=== PATIENT | female | born 2000 | race Caucasian/White ===

== ENCOUNTER 2019-02-22 11:01 | Emergency (ER) | payer BC ==
--- NOTE | 2019-02-22 11:47 | RAD REPORT ---
EXAM DESCRIPTION: Rosibel Single View02/22/2019 11:41 am CLINICAL HISTORY: Chest pain COMPARISON: none FINDINGS: The lungs appear clear of acute infiltrate. The heart is normal size IMPRESSION: No acute abnormalities displayed
[2019-02-22 11:57] LABS: Absolute Lymphocytes (CBC) 2.3 K/uL (0.7-4.9); Basophils % 0.5 % (0-1.3); Hematocrit 37.8 % (36.0-45.0); Lymphocytes % 27.4 % (15.3-44.8); MPV 8.4 fL (7.6-11.3); RBC Red Blood Cell Count 4.72 M/uL (3.86-4.86)
[2019-02-22 12:02] LABS: Protime INR 1.05
[2019-02-22 12:10] LABS: ALT/SGPT 22 U/L (12-78); AST/SGOT 19 U/L (15-37); Albumin 2.9 g/dL (3.4-5.0); Alkaline Phosphatase 72 U/L (45-117); BUN Blood Urea Nitrogen 11 mg/dL (7-18); Bicarbonate 23 mmol/L (21-32); Bilirubin Direct 0.1 mg/dL (0-0.2); Bilirubin Total 0.5 mg/dL (0.2-1.0); Glucose Level 98 mg/dL (74-106); Magnesium 2.1 mg/dL (1.8-2.4); NT PRO-BNP 111 pg/mL (<125); Protein, Total 6.7 g/dL (6.4-8.2); Sodium Level 139 mmol/L (136-145); Troponin (Emerg Dept Use Only) < 0.02 ng/mL (0.0-0.045)
[2019-02-22 12:32] LABS: Urine Blood 2+ (NEG); Urine Glucose NEGATIVE (NEG); Urine Protein NEGATIVE (NEG)
--- NOTE | 2019-02-22 13:23 | EDPHYS ---
Physician Documentation [facility] Name: Brittany Rivera Age: 18 yrs Sex: Female : 2000 Arrival Date: 02/22/2019 Time: 11:03 Bed 20 Private MD: ED Physician Loco Olivas HPI: 02/22 11:14 This 18 yrs old Female presents to ER via EMS with complaints of Chest jmm Tightness. 11:14 The patient presents with a history of heart racing. Onset: The symptoms/episode jmm began/occurred acutely, just prior to arrival. Duration: The patient or guardian reports a single episode, that is now resolved. Modifying factors: The symptoms are aggravated by nothing. The symptoms are alleviated by nothing. Associated signs and symptoms: Pertinent positives: Pertinent negatives: vomiting. This is a 18 year old female with no chronic medical conditions that presents to the ED with complaints of chest tightness and palpitations beginning while at work earlier today. Patient states she has been taking weight loss supplements over the past week. States symptoms have improved since onset. . Historical: - Allergies: 11:05 No Known Allergies; jl7 - Home Meds: 11:05 None [Active]; jl7 - PMHx: 11:05 None; jl7 - PSHx: 11:05 None; jl7 - Immunization history:: Adult Immunizations up to date. - Social history:: Smoking status: Patient/guardian denies using tobacco. - Ebola Screening: : No symptoms or risks identified at this time. ROS: 11:14 Constitutional: Negative for fever, chills, and weight loss. jmm 11:14 Cardiovascular: Positive for palpitations. 11:14 Respiratory: Positive for shortness of breath. 11:14 Neuro: Positive for 11:14 All other systems are negative. Exam: 11:14 Constitutional: This is a well developed, well nourished patient who is awake, alert, jmm and in no acute distress. Head/Face: atraumatic. Eyes: EOMI, no conjunctival erythema appreciated ENT: Moist Mucus Membranes Neck: Trachea midline, Supple Chest/axilla: Normal chest wall appearance and motion. Cardiovascular: Regular rate and rhythm. No edema appreciated Respiratory: Normal respirations, no respiratory distress appreciated Abdomen/GI: Non distended, soft Back: Normal ROM Skin: General appearance color normal MS/ Extremity: Moves all extremities, no obvious deformities appreciated, no edema noted to the lower extremities Neuro: Awake and alert, normal gait Psych: Behavior is normal, Mood is normal, Patient is cooperative and pleasant Vital Signs: 11:05 BP 121 / 67; Pulse 98; Resp 16 S; Temp 98.2; Pulse Ox 100% on R/A; Weight 86.18 kg (R); em Height 5 ft. 4 in. (162.56 cm) (R); Pain 0/10; 12:27 BP 106 / 67; Pulse 84; Resp 16; Pulse Ox 98% on R/A; em 13:39 BP 104 / 80; Pulse 84; Resp 18; Pulse Ox 99% on R/A; Pain 0/10; em 11:05 Body Mass Index 32.61 (86.18 kg, 162.56 cm) em MDM: 11:14 Patient medically screened. awais 13:21 Data reviewed: vital signs, nurses notes. Counseling: I had a detailed discussion with joycelyn the patient and/or guardian regarding: the historical points, exam findings, and any diagnostic results supporting the discharge/admit diagnosis, lab results, radiology results, the need for outpatient follow up, to return to the emergency department if symptoms worsen or persist or if there are any questions or concerns that arise at home. ED course: I do not suspect ACS or PE. Patient is advised to follow up with pcp for reevaluation. Otherwise given strict return precautions. Patient understood and agrees with the plan of care. . 02/22 11:18 Order name: Basic Metabolic Panel; Complete Time: 12:17 [facility] 02/22 11:18 Order name: CBC with Diff; Complete Time: 12:17 [facility] 02/22 11:18 Order name: LFT's; Complete Time: 12:17 [facility] 02/22 11:18 Order name: Magnesium; Complete Time: 12:17 [facility] 02/22 11:18 Order name: NT PRO-BNP; Complete Time: 12:17 [facility] 02/22 11:18 Order name: PT-INR; Complete Time: 12:41 [facility] 02/22 11:18 Order name: Troponin (emerg Dept Use Only); Complete Time: 12:17 [facility] 02/22 11:18 Order name: XRAY Chest (1 view); Complete Time: 11:49 [facility] 02/22 11:18 Order name: EKG; Complete Time: 11:20 [facility] 02/22 11:18 Order name: Cardiac monitoring; Complete Time: 11:48 [facility] 02/22 11:18 Order name: EKG - Nurse/Tech; Complete Time: 11:48 [facility] 02/22 11:18 Order name: D-Dimer; Complete Time: 12:41 [facility] 02/22 11:57 Order name: Urine Dipstick--Ancillary (enter results); Complete Time: 12:41 [facility] 02/22 11:57 Order name: Urine --Ancillary (enter results); Complete Time: 12:41 [facility] 02/22 11:18 Order name: IV Saline Lock; Complete Time: 11:48 [facility] 02/22 11:18 Order name: Labs collected and sent; Complete Time: 11:48 [facility] 02/22 11:18 Order name: O2 Per Protocol; Complete Time: 11:48 [facility] 02/22 11:18 Order name: O2 Sat Monitoring; Complete Time: 11:48 [facility] Administered Medications: No medications were administered Disposition: 15:34 Co-signature as Attending Physician, Loco Olivas MD I agree with the assessment and [facility] plan of care. Disposition: 02/22/19 13:22 Discharged to Home. Impression: Palpitations. - Condition is Stable. - Discharge Instructions: Palpitations. - Medication Reconciliation Form, Thank You Letter, Antibiotic Education, Prescription Opioid Use form. - Follow up: Private Physician; When: 2 - 3 days; Reason: Recheck today's complaints, Continuance of care, Re-evaluation by your physician. Signatures: Dispatcher [employer] Loco Peñaloza MD MD cha Mickail, Joel PA PA [facility] Tim Martino, REFERENCE ASSISTANT REFERENCE ASSISTANT Oanh Shrestha, RN RN jl7 Corrections: (The following items were deleted from the chart) 13:50 13:22 02/22/2019 13:22 Discharged to Home. Impression: Palpitations. Condition is em Stable. Forms are Medication Reconciliation Form, Thank You Letter, Antibiotic Education, Prescription Opioid Use. Follow up: Private Physician; When: 2 - 3 days; Reason: Recheck today's complaints, Continuance of care, Re-evaluation by your physician. [facility]
--- NOTE | 2019-02-22 13:23 | ER ---
Nurse's Notes [facility] Name: Brittany Rivera Age: 18 yrs Sex: Female : 2000 Arrival Date: 02/22/2019 Time: 11:03 Bed 20 Private MD: Diagnosis: Palpitations Presentation: 02/22 11:04 Presenting complaint: EMS states: Pt c/o chest tightness on inspiration. Transition of jl7 care: patient was not received from another setting of care. Onset of symptoms was February 22, 2019. Risk Assessment: Do you want to hurt yourself or someone else? Patient reports no desire to harm self or others. Initial Sepsis Screen: Does the patient meet any 2 criteria? No. Patient's initial sepsis screen is negative. Does the patient have a suspected source of infection? No. Patient's initial sepsis screen is negative. Care prior to arrival: None. 11:04 Method Of Arrival: EMS: [place] [id number] 11:04 Acuity: MIKHAIL 3 jl7 Triage Assessment: 11:05 General: Appears in no apparent distress. uncomfortable, Behavior is calm, cooperative, jl7 appropriate for age. Pain: Denies pain. Cardiovascular: Patient's skin is warm and dry. Historical: - Allergies: 11:05 No Known Allergies; jl7 - Home Meds: 11:05 None [Active]; jl7 - PMHx: 11:05 None; jl7 - PSHx: 11:05 None; jl7 - Immunization history:: Adult Immunizations up to date. - Social history:: Smoking status: Patient/guardian denies using tobacco. - Ebola Screening: : No symptoms or risks identified at this time. Screenin:15 Abuse screen: Denies threats or abuse. Nutritional screening: No deficits noted. em Tuberculosis screening: No symptoms or risk factors identified. Fall Risk None identified. Assessment: 11:15 General: Appears in no apparent distress. comfortable, Behavior is calm, cooperative, em Denies fever. Pain: Denies pain. Pain does not radiate. Pain currently is 0 out of 10 on a pain scale. Pain began suddenly. Neuro: Level of Consciousness is awake, alert, obeys commands, Oriented to person, place, time, situation, Reports had an episode of dizziness that lasted about 5 minutes, symptoms resolved. Cardiovascular: Denies chest pain, Capillary refill < 3 seconds Patient's skin is warm and dry. Rhythm is sinus rhythm. Respiratory: Reports shortness of breath during dizziness episode Airway is patent Respiratory effort is even, unlabored, Respiratory pattern is regular, symmetrical. GI: Patient currently denies nausea, vomiting. Derm: Skin is intact, is healthy with good turgor, Skin is pink, warm \T\ dry. Musculoskeletal: Capillary refill < 3 seconds, Range of motion: intact in all extremities. 12:27 Reassessment: Patient appears in no apparent distress at this time. Patient and/or em family updated on plan of care and expected duration. Pain level reassessed. Patient is alert, oriented x 3, equal unlabored respirations, skin warm/dry/pink. Patient denies pain at this time. 13:38 Reassessment: Patient appears in no apparent distress at this time. Patient and/or em family updated on plan of care and expected duration. Pain level reassessed. Patient is alert, oriented x 3, equal unlabored respirations, skin warm/dry/pink. Patient denies pain at this time. Vital Signs: 11:05 BP 121 / 67; Pulse 98; Resp 16 S; Temp 98.2; Pulse Ox 100% on R/A; Weight 86.18 kg (R); em Height 5 ft. 4 in. (162.56 cm) (R); Pain 0/10; 12:27 BP 106 / 67; Pulse 84; Resp 16; Pulse Ox 98% on R/A; em 13:39 BP 104 / 80; Pulse 84; Resp 18; Pulse Ox 99% on R/A; Pain 0/10; em 11:05 Body Mass Index 32.61 (86.18 kg, 162.56 cm) em ED Course: 11:03 Patient arrived in ED. jl7 11:05 Triage completed. jl7 11:05 Arm band placed on right wrist. jl7 11:10 Zen Elkins PA is PHCP. jmm 11:10 Loco Olivas MD is Attending Physician. jmm 11:15 Patient has correct armband on for positive identification. Placed in gown. Bed in low em position. Call light in reach. Pulse ox on. NIBP on. 11:15 EKG done, by endo tech. reviewed by Loco Olivas MD. tc 11:15 Patient maintains SpO2 saturation greater than 95% on room air. em 11:19 Tim Martino LVN is Primary Nurse. em 11:40 Initial lab(s) drawn, by me, sent to lab. Inserted saline lock: 20 gauge in right em antecubital area, using aseptic technique. Blood collected. 11:42 XRAY Chest (1 view) In Process Unspecified. EDMS 13:37 No provider procedures requiring assistance completed. IV discontinued, intact, em bleeding controlled, No redness/swelling at site. Pressure dressing applied. Administered Medications: No medications were administered Outcome: 13:22 Discharge ordered by MD. m 13:37 Discharged to home ambulatory. em 13:37 Condition: good 13:37 Discharge instructions given to patient, Instructed on discharge instructions, follow up and referral plans. Demonstrated understanding of instructions, follow-up care. 13:50 Patient left the ED. em Signatures: Dispatcher [employer] EDMS Zen Elkins PA PA [facility] Tim Martino LVN LVN em Desi Gu, parking inspector EKG Ttc Oanh Clark RN RN jl7 Corrections: (The following items were deleted from the chart) 11:19 11:05 BP 121 / 67; Pulse 98bpm; Resp 16bpm; Spontaneous; 86.18 kg Reported; Height 5 em ft. 4 in. Reported; BMI: 32.6; Pain 0/10; jl7
--- NOTE | 2019-02-23 15:51 | EKG ---
Test Date: 2019-02-22 Test Time: 11:06:17 Utilization Coordinator: JENNIFER MEASUREMENT RESULTS: Intervals: Rate: 111 MT: 148 QRSD: 74 QT: 338 QTc: 459 [place]ford: P: 69 MT: 148 QRS: 39 T: 54 INTERPRETIVE STATEMENTS: Sinus tachycardia Otherwise normal ECG No previous ECG available for comparison Electronically Signed On 02-23-19 15:50:37 CDT by Ángel Mix
== END 2019-02-22 13:50 | disposition home or self-care (01) ==
LOC: ER 11:01
DX: R00.2 Palpitations (principal)
CPT/HCPCS: 36415; 71045; 80048; 80076; 81003; 81025; 83735; 83880; 84484; 85025; 85379; 85610; 93005; 99285

== ENCOUNTER 2019-04-08 20:06 | Emergency (ER) | payer BC, SELFPAY ==
[2019-04-08 21:05] LABS: Absolute Lymphocytes (CBC) 2.9 K/uL (0.7-4.9); Basophils % 0.6 % (0-1.3); Hematocrit 38.1 % (36.0-45.0); Lymphocytes % 28.4 % (15.3-44.8); MPV 7.9 fL (7.6-11.3); RBC Red Blood Cell Count 4.76 M/uL (3.86-4.86)
[2019-04-08] MEDS ORDERED: SUCRALFATE 1 GM TABLET ONE (21:19)
[2019-04-08 21:25] LABS: Albumin 3.2 g/dL (3.4-5.0); Bilirubin Direct 0.1 mg/dL (0-0.2); Bilirubin Total 0.3 mg/dL (0.2-1.0); Potassium 3.6 mmol/L (3.5-5.1)
[2019-04-08 21:31] LABS: Urine Bacteria <20 /HPF (<20); Urine Culture Reflex Order NOT NEEDED; Urine RBC 20-50 /HPF (NONE SEEN)
[2019-04-08 22:03] LABS: Urine Blood 3+ (NEG); Urine Glucose NEGATIVE (NEG); Urine Protein NEGATIVE (NEG); Urine Specific Gravity >1.030 (1.005-1.030); Urine pH 5.5 (5.0-7.0)
[2019-04-09] MEDS ORDERED: FENTANYL CITR 100 MCG/2 ML ONE (00:25)
[2019-04-09] MEDS ORDERED: ONDANSETRON 4 MG/2 ML VIAL ONE (00:25)
--- NOTE | 2019-04-09 00:36 | ER ---
Nurse's Notes [facility] Name: Brittany Rivera Age: 19 yrs Sex: Female : 2000 Arrival Date: 04/08/2019 Time: 20:20 Bed 8 Private MD: Diagnosis: Epigastric pain;Hematuria Presentation: 04/08 20:29 Presenting complaint: Patient states: reflux, chest and back discomfort, IBS issues ak1 since 0900 today. Transition of care: patient was not received from another setting of care. Onset of symptoms was April 08, 2019. Risk Assessment: Do you want to hurt yourself or someone else? Patient reports no desire to harm self or others. Initial Sepsis Screen: Does the patient meet any 2 criteria? No. Patient's initial sepsis screen is negative. Does the patient have a suspected source of infection? No. Patient's initial sepsis screen is negative. Care prior to arrival: None. 20:29 Method Of Arrival: Ambulatory ak1 20:29 Acuity: MIKHAIL 3 ak1 Triage Assessment: 20:30 General: Appears in no apparent distress. Behavior is calm, cooperative. 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 - Social history:: Smoking status: Patient/guardian denies using tobacco. - Ebola Screening: : No symptoms or risks identified at this time. Screenin:46 Abuse screen: Denies threats or abuse. Denies injuries from another. Nutritional ca1 screening: No deficits noted. Tuberculosis screening: No symptoms or risk factors identified. Fall Risk None identified. Assessment: 20:46 General: Appears in no apparent distress. comfortable, Behavior is calm, cooperative, ca1 appropriate for age. Pain: Complains of pain in left lateral anterior chest and right breast Pain radiates to back Pain currently is 7 out of 10 on a pain scale. Quality of pain is described as sharp, stabbing, Pain began this morning Is intermittent. Neuro: Level of Consciousness is awake, alert, obeys commands, Oriented to person, place, time, situation. Cardiovascular: Heart tones S1 S2 present Capillary refill < 3 seconds Patient's skin is warm and dry. Pulses are all present. Respiratory: Airway is patent Respiratory effort is even, unlabored, Respiratory pattern is regular, symmetrical, Breath sounds are clear bilaterally. GI: Abdomen is round non-distended, Bowel sounds present X 4 quads. Abd is soft X 4 quads Abdomen is tender to palpation in right upper quadrant. : No deficits noted. No signs and/or symptoms were reported regarding the genitourinary system. EENT: No deficits noted. No signs and/or symptoms were reported regarding the EENT system. Derm: Skin is intact, is healthy with good turgor, Skin is pink, warm \T\ dry. Musculoskeletal: Circulation, motion, and sensation intact. Capillary refill < 3 seconds, Range of motion: intact in all extremities. 21:44 Reassessment: Patient appears in no apparent distress at this time. Patient and/or ca1 family updated on plan of care and expected duration. Pain level reassessed. Patient is alert, oriented x 3, equal unlabored respirations, skin warm/dry/pink. 22:35 Reassessment: Patient appears in no apparent distress at this time. Patient is alert, ca1 oriented x 3, equal unlabored respirations, skin warm/dry/pink. 22:51 Reassessment: pt taken to CT. ak1 23:39 Reassessment: Patient appears in no apparent distress at this time. Patient and/or ak1 family updated on plan of care and expected duration. Pain level reassessed. Patient is alert, oriented x 3, equal unlabored respirations, skin warm/dry/pink. pt and family informed of wait for CT results. 04/09 01:03 Reassessment: pt given phone number of GI specialist in [place]. pt informed not ak1 to drink alcohol. pt discharged came to nurses station stating that the abd pain increased with standing up. DR. Rios notified, new orders given and medications administered. Vital Signs: 04/08 20:28 BP 120 / 79; Pulse 87; Resp 16; Temp 98.1; Pulse Ox 98% on R/A; Weight 88.45 kg (R); ak1 Height 5 ft. 4 in. (162.56 cm) (R); Pain 6/10; 21:44 BP 122 / 79; Pulse 91; Resp 16 S; Pulse Ox 100% on R/A; ca1 22:35 BP 114 / 75; Pulse 91; Resp 16 S; Pulse Ox 98% on R/A; ca1 23:39 BP 97 / 74; Pulse 82; Resp 16; Pulse Ox 100% on R/A; ak1 04/09 00:33 BP 100 / 79; Pulse 87; Resp 16; Pulse Ox 99% on R/A; Pain 0/10; ak1 04/08 20:28 Body Mass Index 33.47 (88.45 kg, 162.56 cm) ak1 ED Course: 04/08 20:20 Patient arrived in ED. cf2 20:28 Arm band placed on Patient placed in waiting room, Patient notified of wait time. Urine ak1 obtained. 20:29 Triage completed. ak1 20:36 Clarke Rios MD is Attending Physician. gs 20:46 Cece Moore RN is Primary Nurse. ca1 20:46 Patient has correct armband on for positive identification. Placed in gown. Bed in low ca1 position. Call light in reach. Side rails up X 1. vehicle monitor technician on. Pulse ox on. NIBP on. Warm blanket given. 20:48 No provider procedures requiring assistance completed. Patient maintains SpO2 ca1 saturation greater than 95% on room air. 21:01 Initial lab(s) drawn, by me, sent to lab. Urine collected: clean catch specimen, clear, ca1 Amount Voided: 90mL. Inserted saline lock: 22 gauge in right antecubital area, using aseptic technique. Blood collected. 22:52 CT Stone Protocol In Process Unspecified. EDMS 04/09 00:59 IV discontinued, intact, bleeding controlled, No redness/swelling at site. Pressure ak1 dressing applied. Administered Medications: 04/08 21:23 Drug: CarafATE 1 grams Route: PO; ca1 22:51 Follow up: Response: No adverse reaction ak1 04/09 00:32 Drug: Zofran 4 mg Route: IVP; Site: right antecubital; ak1 00:33 Follow up: Response: No adverse reaction ak1 00:33 Drug: fentaNYL (PF) 25 mcg Route: IVP; Site: right antecubital; ak1 00:58 Follow up: Response: No adverse reaction; Pain is decreased ak1 01:05 Drug: GI Cocktail without - (Maalox Suspension 30 ml, Lidocaine Liquid 2 % 15 ak1 ml) Route: PO; 01:25 Follow up: Response: No adverse reaction; No adverse reaction. pt stated pain was ak1 tolerable. pt stated pain is only increased when standing. Outcome: 00:34 Discharge ordered by . 00:58 Discharged to home ambulatory, with family. ak1 00:58 Condition: improved 00:58 Discharge instructions given to patient, family, Instructed on discharge instructions, follow up and referral plans. no drinking with medication, no driving heavy equipment, medication usage, Demonstrated understanding of instructions, follow-up care, medications, Prescriptions given X 2. 01:26 Patient left the ED. ak1 Signatures: Dispatcher [employer] EDChayo Kolb RN RN ak1 Clarke Rios MD MD Cece Moore RN RN [facility] Frandy Marin 2
--- NOTE | 2019-04-09 00:36 | EDPHYS ---
Physician Documentation [facility] Name: Brittany Rivera Age: 19 yrs Sex: Female : 2000 Arrival Date: 04/08/2019 Time: 20:20 Bed 8 Private MD: ED Physician Clarke Rios HPI: 04/09 02:20 This 19 yrs old Female presents to ER via Ambulatory with complaints of gs Epigastric Pain. 02:20 The patient presents with abdominal pain in the epigastric area. Onset: The gs symptoms/episode began/occurred 2 day(s) ago, and became worse. The symptoms do not radiate. Associated signs and symptoms: Pertinent positives: nausea. The symptoms are described as burning, sharp. Modifying factors: the symptoms are aggravated by alcohol, drinking, food. Severity of pain: At its worst the pain was severe in the emergency department the pain has improved markedly. The patient has experienced similar episodes in the past, multiple times. The patient has not recently seen a physician. 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 - Social history:: Smoking status: Patient/guardian denies using tobacco. - Ebola Screening: : No symptoms or risks identified at this time. ROS: 04/09 02:20 All other systems are negative. gs Exam: 02:20 Head/Face: Normocephalic, atraumatic. Eyes: Pupils equal round and reactive to light, gs extra-ocular motions intact. Lids and lashes normal. Conjunctiva and sclera are non-icteric and not injected. Cornea within normal limits. Periorbital areas with no swelling, redness, or edema. ENT: Nares patent. No nasal discharge, no septal abnormalities noted. Tympanic membranes are normal and external auditory canals are clear. Oropharynx with no redness, swelling, or masses, exudates, or evidence of obstruction, uvula midline. Mucous membranes moist. Neck: Trachea midline, no thyromegaly or masses palpated, and no cervical lymphadenopathy. Supple, full range of motion without nuchal rigidity, or vertebral point tenderness. No Meningismus. Chest/axilla: Normal chest wall appearance and motion. Nontender with no deformity. No lesions are appreciated. Cardiovascular: Regular rate and rhythm with a normal S1 and S2. No gallops, murmurs, or rubs. Normal PMI, no JVD. No pulse deficits. Respiratory: Lungs have equal breath sounds bilaterally, clear to auscultation and percussion. No rales, rhonchi or wheezes noted. No increased work of breathing, no retractions or nasal flaring. Back: No spinal tenderness. No costovertebral tenderness. Full range of motion. Skin: Warm, dry with normal turgor. Normal color with no rashes, no lesions, and no evidence of cellulitis. MS/ Extremity: Pulses equal, no cyanosis. Neurovascular intact. Full, normal range of motion. Neuro: Awake and alert, GCS 15, oriented to person, place, time, and situation. Cranial nerves II-XII grossly intact. Motor strength 5/5 in all extremities. Sensory grossly intact. Cerebellar exam normal. Normal gait. 02:20 Constitutional: The patient appears alert, awake. 02:20 ECG was reviewed by the Attending Physician. 02:20 Abdomen/GI: Palpation: mild abdominal tenderness, in the epigastric area, rebound tenderness, is not appreciated. Vital Signs: 04/08 20:28 BP 120 / 79; Pulse 87; Resp 16; Temp 98.1; Pulse Ox 98% on R/A; Weight 88.45 kg (R); ak1 Height 5 ft. 4 in. (162.56 cm) (R); Pain 6/10; 21:44 BP 122 / 79; Pulse 91; Resp 16 S; Pulse Ox 100% on R/A; ca1 22:35 BP 114 / 75; Pulse 91; Resp 16 S; Pulse Ox 98% on R/A; ca1 23:39 BP 97 / 74; Pulse 82; Resp 16; Pulse Ox 100% on R/A; ak1 04/09 00:33 BP 100 / 79; Pulse 87; Resp 16; Pulse Ox 99% on R/A; Pain 0/10; ak1 04/08 20:28 Body Mass Index 33.47 (88.45 kg, 162.56 cm) ak1 MDM: 04/08 20:47 Patient medically screened. 04/09 02:20 Differential diagnosis: bowel obstruction, cholecystitis, gastroesophageal reflux gs disease, Ureterolithiasis, urinary tract infection. Data reviewed: vital signs, nurses notes. Counseling: I had a detailed discussion with the patient and/or guardian regarding: the historical points, exam findings, and any diagnostic results supporting the discharge/admit diagnosis, the need for outpatient follow up. Response to treatment: the patient's symptoms have markedly improved after treatment, the patient's condition has returned to base line, and as a result, I will discharge patient. 04/08 20:48 Order name: Basic Metabolic Panel; Complete Time: 22:24 04/08 20:48 Order name: CBC with Diff; Complete Time: 22:24 04/08 20:48 Order name: Hepatic Function; Complete Time: 22:24 04/08 20:48 Order name: Lipase; Complete Time: 22:24 04/08 20:48 Order name: Urine Microscopic Only; Complete Time: 22:24 04/08 21:11 Order name: Urine Dipstick--Ancillary (enter results); Complete Time: 22:24 [facility] 04/08 20:48 Order name: IV Saline Lock; Complete Time: 21:01 04/08 20:48 Order name: Labs collected and sent; Complete Time: 21: 04/08 21:11 Order name: Urine --Ancillary (enter results); Complete Time: 22:24 [facility] 04/08 22:35 Order name: CT Stone Protocol 04/08 20:48 Order name: Urine Test (obtain specimen); Complete Time: 21:01 04/08 20:48 Order name: Urine Dipstick-Ancillary (obtain specimen); Complete Time: 21:01 04/08 20:48 Order name: EKG - Nurse/Tech; Complete Time: 21:23 gs EC:20 Rate is 88 beats/min. Rhythm is regular. ME interval is normal. QRS interval is normal. gs No Q waves. T waves are Normal. No ST changes noted. Clinical impression: Normal ECG. Interpreted by me. Administered Medications: 04/08 21:23 Drug: CarafATE 1 grams Route: PO; ca1 22:51 Follow up: Response: No adverse reaction ak1 04/09 00:32 Drug: Zofran 4 mg Route: IVP; Site: right antecubital; ak1 00:33 Follow up: Response: No adverse reaction ak1 00:33 Drug: fentaNYL (PF) 25 mcg Route: IVP; Site: right antecubital; ak1 00:58 Follow up: Response: No adverse reaction; Pain is decreased ak1 01:05 Drug: GI Cocktail without - (Maalox Suspension 30 ml, Lidocaine Liquid 2 % 15 ak1 ml) Route: PO; 01:25 Follow up: Response: No adverse reaction; No adverse reaction. pt stated pain was ak1 tolerable. pt stated pain is only increased when standing. Disposition: 04/09/19 00:34 Discharged to Home. Impression: Epigastric pain, Hematuria. - Condition is Stable. - Discharge Instructions: Abdominal Pain, Adult, Hematuria, Adult. - Prescriptions for Carafate 100 mg/mL Oral suspension - take 10 milliliter by ORAL route 4 times per day As needed on an empty stomach 1 hour before meals and at bedtime; 250 milliliter. Prilosec 20 mg Oral Capsule, Delayed Release(E.C.) - take 1 capsule by ORAL route 2 times per day; 30 capsule. - Medication Reconciliation Form, Thank You Letter, Antibiotic Education, Prescription Opioid Use form. - Follow up: Private Physician; When: 2 - 3 days; Reason: Re-evaluation by your physician. Signatures: Dispatcher [employer] EDChayo Kolb RN RN ak1 Clarke Rios MD MD Cece Moore RN RN ca1 Corrections: (The following items were deleted from the chart) 00:37 00:34 04/09/2019 00:34 Discharged to Home. Impression: Epigastric pain. Condition is gs Stable. Forms are Medication Reconciliation Form, Thank You Letter, Antibiotic Education, Prescription Opioid Use. Follow up: Private Physician; When: 2 - 3 days; Reason: Re-evaluation by your physician. 01:26 00:37 04/09/2019 00:34 Discharged to Home. Impression: Epigastric pain; Hematuria. ak1 Condition is Stable. Discharge Instructions: Abdominal Pain, Adult, Hematuria, Adult. Prescriptions for Carafate 100 mg/mL Oral suspension - take 10 milliliter by ORAL route 4 times per day As needed on an empty stomach 1 hour before meals and at bedtime; 250 milliliter, Prilosec 20 mg Oral Capsule, Delayed Release(E.C.) - take 1 capsule by ORAL route 2 times per day; 30 capsule. and Forms are Medication Reconciliation Form, Thank You Letter, Antibiotic Education, Prescription Opioid Use. Follow up: Private Physician; When: 2 - 3 days; Reason: Re-evaluation by your physician. gs
[2019-04-09] MEDS ORDERED: LIDOCAINE VISCOUS 2% SOLN 15 ML UDC ONE (01:02)
[2019-04-09] MEDS ORDERED: MAGNE/ALUM HYDROXD 30 ML UCUP ONE (01:02)
[2019-04-09 01:59] VITALS: TEMP 98.1
[2019-04-09 02:05] VITALS: BP 100/79; O2SAT 99
--- NOTE | 2019-04-09 12:29 | EKG ---
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
--- NOTE | 2019-04-09 15:20 | RAD REPORT ---
EXAM DESCRIPTION: Stone Protocol CLINICAL HISTORY: FLANK PAIN TECHNIQUE: Contiguous axial images obtained through the abdomen and pelvis following the uneventful administration of IV contrast. Coronal and sagittal reformatted images were provided. This exam was performed according to our departmental dose-optimization program, which includes autom ated exposure control, adjustment of the mA and/or kV according to patient size and/or use of iterati ve reconstruction technique. COMPARISON: None available for comparison. FINDINGS: Lung bases: Clear Liver: The liver is enlarged. Gallbladder and biliary system: The gallbladder is contracted. Pancreas: Grossly unremarkable Spleen: Grossly unremarkable Adrenals: Unremarkable Kidneys: No calculi. No hydronephrosis. Bowel: No obstruction. No appreciable mucosal thickening. Appendix: Normal caliber appendix. No findings to suggest acute appendicitis. Urinary bladder: Unremarkable Reproductive: Unremarkable as visualized Lymph nodes: No pathologically enlarged lymph nodes. Peritoneum: No focal fluid collection. No free air. Vessels: No abdominal aortic aneurysm. Abdominal wall: Tiny fat-containing umbilical hernia. Bones: Unremarkable IMPRESSION: No renal, ureteral or bladder calculi. No evidence for renal obstruction. Electronically signed by: Haroon Brink MD 04/08/2019 11:16 PM CDT Due to temporary technical issues with the PACS/Fluency reporting system, reports are being signed by the in house radiologist as a courtesy to ensure prompt reporting. The interpreting radiologist is f ully responsible for the content of the report.
== END 2019-04-09 01:26 | disposition home or self-care (01) ==
LOC: ER 20:06
DX: R31.9 Hematuria, unspecified (principal); K21.9 Gastro-esophageal reflux disease without esophagitis
CPT/HCPCS: 36415; 74176; 76377; 80048; 80076; 81003; 81015; 81025; 83690; 85025; 93005; 96374; 96375; 99285; J2405; J3010

== ENCOUNTER 2020-11-23 21:11 | Emergency (ER) | payer BC ==
--- NOTE | 2020-11-23 22:32 | ER ---
Nurse's Notes [facility] Name: Brittany Cabrales Age: 20 yrs Sex: Female : 2000 Arrival Date: 11/23/2020 Time: 21:15 Bed 14 Private MD: Derrick Cardona Diagnosis: Contusion of left elbow Presentation: 11/23 21:36 Chief complaint: Patient states: Tripped and fell 1.5 hrs CMO. Tried catching myself ca1 with my L arm. Pain on L forearm. Coronavirus screen: Client denies travel out of the [place] in the last 14 days. At this time, the client does not indicate any symptoms associated with coronavirus-19. Ebola Screen: Patient negative for fever greater than or equal to 101.5 degrees Fahrenheit, and additional compatible Ebola Virus Disease symptoms Patient denies exposure to infectious person. Patient denies travel to an Ebola-affected area in the 21 days before illness onset. No symptoms or risks identified at this time. Initial Sepsis Screen: Does the patient meet any 2 criteria? No. Patient's initial sepsis screen is negative. Does the patient have a suspected source of infection? No. Patient's initial sepsis screen is negative. Risk Assessment: Do you want to hurt yourself or someone else? Patient reports no desire to harm self or others. Onset of symptoms was November 23, 2020. 21:36 Method Of Arrival: Ambulatory ca1 21:36 Acuity: MIKHAIL 4 ca1 Triage Assessment: 22:00 General: Appears in no apparent distress. Behavior is calm, cooperative. Pain: Denies ak2 pain. 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 Flu vaccine is not up to date. - Social history:: Smoking status: Patient denies any tobacco usage or history of. Screenin:59 Abuse screen: Denies threats or abuse. Denies injuries from another. Nutritional ak2 screening: No deficits noted. Tuberculosis screening: No symptoms or risk factors identified. Fall Risk None identified. Vital Signs: 21:36 BP 113 / 66; Pulse 108; Resp 20; Temp 97.3(TE); Pulse Ox 99% on R/A; Weight 94.35 kg ca1 (R); Height 5 ft. 4 in. (162.56 cm) (R); Pain 7/10; 22:53 BP 110 / 67; Pulse 84; Resp 20; Pulse Ox 100% on R/A; ak2 21:36 Body Mass Index 35.70 (94.35 kg, 162.56 cm) ca1 ED Course: 21:15 Patient arrived in ED. es 21:15 Derrick Cardona MD is Private Physician. es 21:38 Triage completed. ca1 21:39 Arm band placed on right wrist. ca1 21:57 Clive Berry is Primary Nurse. ak2 21:59 No apparent distress. ak2 21:59 Patient has correct armband on for positive identification. ak2 21:59 No provider procedures requiring assistance completed. Patient did not have IV access ak2 during this emergency room visit. 22:01 Loco Mcgrath PA is PHCP. cp 22:01 Yao Lopez MD is Attending Physician. cp 22:04 Forearm Left XRAY In Process Unspecified. EDMS 22:30 Romel Mitchell MD is Referral Physician. cp Administered Medications: 22:30 Drug: HYDROcodone-acetaminophen 5 mg-325 mg 1 tabs Route: PO; ak2 22:30 Drug: Ibuprofen 800 mg Route: PO; ak2 Outcome: 22:31 Discharge ordered by MD. cp 22:52 Discharged to home ambulatory. ak2 22:52 Condition: good 22:52 Discharge instructions given to patient, family, Prescriptions given X 2. 22:54 Patient left the ED. ak2 Signatures: Dispatcher [employer] EDMS Angie Rangel Loco Mcgrath PA PA cp Cece Moore RN RN ca1 Clive Berry ak2
--- NOTE | 2020-11-23 22:32 | EDPHYS ---
Physician Documentation [facility] Name: Brittany Cabrales Age: 20 yrs Sex: Female : 2000 Arrival Date: 11/23/2020 Time: 21:15 Bed 14 Private MD: Derrick Cardona ED Physician Yao Lopez HPI: 11/23 22:15 This 20 yrs old Female presents to ER via Ambulatory with complaints of Arm cp Injury. 22:15 The patient or guardian complains of contusion, injury, painful ROM. The complaints cp affect the left elbow, left wrist and left forearm. Context: resulted from a fall, on an outstretched hand. 22:15 Onset: The symptoms/episode began/occurred 1.5 hour(s) ago. cp 22:15 Treatment prior to arrival includes: no previous treatment. Associated signs and cp symptoms: Pertinent negatives: numbness. 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 Flu vaccine is not up to date. - Social history:: Smoking status: Patient denies any tobacco usage or history of. ROS: 22:20 MS/extremity: Positive for pain, tenderness, of the left forearm and left wrist and cp left elbow, painful ROM. 22:20 Constitutional: Negative for body aches, chills, fever, poor PO intake. cp 22:20 Neck: Negative for pain with movement, pain at rest, stiffness. 22:20 Back: Negative for pain at rest, pain with movement. 22:20 Neuro: Negative for headache, loss of consciousness, syncope, weakness. 22:20 All other systems are negative. Exam: 22:25 Constitutional: The patient appears in no acute distress, alert, awake, well developed, cp well nourished, uncomfortable. 22:25 Head/Face: Normocephalic, atraumatic. cp 22:25 Musculoskeletal/extremity: Extremities: grossly normal except: noted in the left elbow: pain, tenderness, ROM: limited passive range of motion due to pain, in the left elbow, Pulses: noted to be 2+ in the left radial artery, the left elbow Severe pain noted. Vital Signs: 21:36 BP 113 / 66; Pulse 108; Resp 20; Temp 97.3(TE); Pulse Ox 99% on R/A; Weight 94.35 kg ca1 (R); Height 5 ft. 4 in. (162.56 cm) (R); Pain 7/10; 22:53 BP 110 / 67; Pulse 84; Resp 20; Pulse Ox 100% on R/A; ak2 21:36 Body Mass Index 35.70 (94.35 kg, 162.56 cm) ca1 Procedures: 22:55 Splinting: Splint applied to left wrist and left elbow using Orthoglass splint, sling, cp posterior long arm. applied by nurse. Examined by me, post splint application: neurovascular intact, Patient tolerated well. MDM: 22:11 Patient medically screened. cp 22:30 Data reviewed: vital signs, nurses notes, radiologic studies, plain films. cp 22:30 Test interpretation: by ED physician or midlevel provider: plain radiologic studies. cp Counseling: I had a detailed discussion with the patient and/or guardian regarding: the historical points, exam findings, and any diagnostic results supporting the discharge/admit diagnosis, radiology results, the need for outpatient follow up, for definitive care, a orthopedic surgeon, to return to the emergency department if symptoms worsen or persist or if there are any questions or concerns that arise at home. Response to treatment: the patient's symptoms have markedly improved after treatment. 11/23 21:39 Order name: Forearm Left XRAY ca1 11/23 22:30 Order name: Splint - Elbow - Posterior cp Administered Medications: 22:30 Drug: HYDROcodone-acetaminophen 5 mg-325 mg 1 tabs Route: PO; ak2 22:30 Drug: Ibuprofen 800 mg Route: PO; ak2 Disposition: 23:00 Chart complete. cp 11/24 05:06 Co-signature as Attending Physician, Yao Lopez MD I agree with the assessment and tw4 plan of care. Disposition: 11/23/20 22:31 Discharged to Home. Impression: Contusion of left elbow. - Condition is Stable. - Discharge Instructions: Elbow Contusion, Form - Excuse from Work, School, or Physical Activity. - Prescriptions for Diclofenac Sodium 75 mg Oral Tablet Sustained Release - take 1 tablet by ORAL route 2 times per day; 30 tablet. Tylenol- Codeine #3 300-30 mg Oral Tablet - take 2 tablets by ORAL route every 6-8 hours As needed; 15 tablet. - Medication Reconciliation Form, Thank You Letter, Antibiotic Education, Prescription Opioid Use form. - Follow up: Romel Mitchell MD; When: 1 week; Reason: Recheck today's complaints. - Problem is new. - Symptoms have improved. Signatures: Dispatcher [employer] EDMS Loco Mcgrath PA PA cp Yao Lopez MD MD tw4 Cece Moore RN RN ca1 Clive Berry ak2 Corrections: (The following items were deleted from the chart) 11/23 22:54 22:31 11/23/2020 22:31 Discharged to Home. Impression: Contusion of left elbow. ak2 Condition is Stable. Forms are Medication Reconciliation Form, Thank You Letter, Antibiotic Education, Prescription Opioid Use. Follow up: Romel Mitchell; When: 1 week; Reason: Recheck today's complaints. Problem is new. Symptoms have improved. cp 11/24 19:35 11/23 22:15 Onset: The symptoms/episode began/occurred just prior to arrival, cp cp
[2020-11-23] MEDS ORDERED: IBUPROFEN 400 MG TAB ONE (22:44)
[2020-11-23] MEDS ORDERED: HYDROCODONE/APAP 5/325 MG TAB ONE (22:44)
[2020-11-23 23:44] VITALS: TEMP 97.3
[2020-11-23 23:45] VITALS: BP 110/67; O2SAT 100
--- NOTE | 2020-11-24 10:15 | RAD REPORT ---
EXAM DESCRIPTION: RAD FOREARM LEFT 11/23/20 COMPARISON: None. TECHNIQUE: Left forearm x-ray FINDINGS: No fracture or dislocation is seen.
== END 2020-11-23 22:54 | disposition home or self-care (01) ==
LOC: ER 21:11
PROC: 2W39X1Z Immobilization of Left Upper Extremity using Splint (ICD-10-PCS; principal; 2020-11-23)
DX: S50.02XA Contusion of left elbow, initial encounter (principal); W19.XXXA Unspecified fall, initial encounter
CPT/HCPCS: 99283